=== PATIENT | female | born 1960 | race Caucasian/White ===

== ENCOUNTER 2021-10-12 23:19 | Emergency (ER) | payer SELFPAY ==
--- NOTE | ~2021-10-12 | XR_ITS ---
XR shoulder RT min 2V DATE: 10/12/2021 23:40 INDICATION: Increasing right shoulder pain since April TECHNIQUE: 4 views COMPARISON: None FINDINGS: No fracture or dislocation, periosteal reaction or bone destruction. No abnormal soft tiss ue calcification. IMPRESSION: No significant abnormality Reviewed, dictated and finalized at location A. IMPRESSION: No significant abnormality
[2021-10-12 23:22] VITALS: BP 160/70; PULSE 90; RESP 20; TEMP 37; O2SAT 98
[2021-10-12] MEDS: KETOROLAC (*BKC) 60 MG/2 ML VIAL IM (23:39)
--- NOTE | 2021-10-12 23:40 | ED.NECK ---
HPI - Neck Pain/Injury General Chief Complaint: Neck Pain/Injury Stated Complaint: RIGHT ARM PAIN Source: patient Mode of arrival: ambulatory Limitations: no limitations History of Present Illness HPI Narrative: this is a 61-year-old presents with right shoulder pain, with no injuries patient has a history of osteoarthritis has tried [id number] medications but has some minimal relief, has decreased range of motion of the right shoulder with no neck pain no chest pain no shortness of breath no abdominal pain no nausea vomiting no fever chills does have point tenderness in the bicipital region of her right shoulder. complaint: other ( right shoulder pain) Onset (ago): day(s) Severity: moderate Severity scale (1-10): 6 Quality: dull Duration: constant Exacerbating factors: movement of extremity Related Data Home Medications Medication Instructions Recorded Confirmed fluoxetine 20 mg capsule (Prozac) 20 mg PO BID 10/12/21 10/12/21 levothyroxine 150 mcg tablet 150 mcg PO DAILY 10/12/21 10/12/21 (Synthroid) Allergies Allergy/AdvReac Type Severity Reaction Status Date / Time Penicillins AdvReac Nausea Verified 10/12/21 23:27 Review of Systems Review of Systems: All systems reviewed & are unremarkable except as noted in HPI and below PMFSH Past Medical History Medical History Osteoarthritis cervical spine Exam Const: General: healthy appearing and no acute distress HENMT: Head: normal to inspection Eyes: Conjunctivae: conjunctivae normal Neck: Neck: normal visual inspection Chest: Chest palpation & inspection: normal inspection of the chest Resp: Effort & Inspection: normal respiratory effort Auscultation: clear to auscultation bilaterally Cardio: Rate: regular rate Rhythm: regular rhythm GI: GI Palp: Yes Soft to palpation Auscultation: normal bowel sounds Back/Spine/Pelvis: Back: no CVA tenderness Skin: General skin exam: normal color Rashes: no rashes Neuro: General: patient oriented x3 and moves all extremities Extrem: Other: tender right shoulder in the bicipital region with decreased range of motion secondary to pain Psych: Mental Status: mental status grossly normal Affect: normal affect Course Course Emergency Course: x-ray performed shows no acute fractures but does show osteoarthritis, patient received 60mg IM Toradol and after reassessment pain has improved. Vital Signs Vital signs: Vital Signs Temperature 37.0 C 10/12/21 23:22 Pulse Rate 90 10/12/21 23:22 Respiratory Rate 20 10/12/21 23:22 Blood Pressure 160/70 H 10/12/21 23:22 Pulse Oximetry 98 10/12/21 23:22 Oxygen Delivery Room Air 10/12/21 23:22 Temperature 37.0 C 10/12/21 23:22 Pulse Rate 90 10/12/21 23:22 Respiratory Rate 20 10/12/21 23:22 Blood Pressure 160/70 H 10/12/21 23:22 Pulse Oximetry 98 10/12/21 23:22 Oxygen Delivery Room Air 10/12/21 23:22 Discharge Plan Discharge Clinical Impression: Rotator cuff strain Qualifiers: Encounter type: initial encounter Laterality: right Qualified Code(s): S46.011A - Strain of muscle(s) and tendon(s) of the rotator cuff of right shoulder, initial encounter Osteoarthritis of shoulder Qualifiers: Osteoarthritis type: primary Laterality: right Qualified Code(s): M19.011 - Primary osteoarthritis, right shoulder Patient Disposition: Home, Self-Care Condition: Stable Instructions: Antibiotic Form, Rotator Cuff Injury (ED), Osteoarthritis (ED) Additional Instructions: advised continue current medication take medicine as prescribed follow-up with primary care physician for further evaluation treatment with possible MRI. Prescriptions: New tramadol [Ultram] 50 mg tablet 50 mg PO Q6H PRN (Reason: pain) Qty: 20 0RF cyclobenzaprine 5 mg tablet 5 mg PO TID Qty: 20 0RF No Action levothyroxine [Synthroid] 150 mcg Tablet 150 mcg PO INGRID
--- NOTE | 2021-10-13 00:17 | PC.NURSE ---
sling applied for comfort per orders; nail bed miguel ángel well
[2021-10-13 00:18] VITALS: BP 140/88; PULSE 90; RESP 20; TEMP 36.6; O2SAT 96
== END 2021-10-13 00:19 | disposition home or self-care (01) ==
PROVIDERS: Emergency Provider Emergency Medicine
DX: S46.011A Strain of muscle(s) and tendon(s) of the rotator cuff of right shoulder, initial encounter (principal); M19.011 Primary osteoarthritis, right shoulder
CPT/HCPCS: 73030; 96372; 99283; A4565; J1885